=== PATIENT | female | born 1985 | race Caucasian/White ===

== ENCOUNTER → 2017-01-11 | Outpatient (CLI) | payer MEDICAID | LOC: BMCIMAGING 10:34 | PROVIDERS: ATTEND Nurse Practitioner Adult Health | DX: R76.11 Nonspecific reaction to tuberculin skin test without active tuberculosis (principal); Z11.1 Encounter for screening for respiratory tuberculosis ==

== ENCOUNTER 2017-02-23 22:40 | Observation (INO) | payer MEDICAID ==
[2017-02-23] MEDS ORDERED: HYDROmorphONE/DILAUDID 1 MG/ML SYR ONE (23:34)
[2017-02-23 23:35] LABS: % IMMATURE GRANULYOCYTES 0.3 % (0.0-1.1); ABSOLUTE IMMATURE GRANULOCYTES 0.03 10^3/uL (0.00-0.10); ADD DIFF? NO; ADD MORPH? NO; ADD SCAN? NO; ATYPICAL LYMPHOCYTE FLAG 10 (0-99); FRAGMENT RBC FLAG 0 (0-99); HEMATOCRIT 38.3 % (38.0-47.0); HEMOGLOBIN 13.2 g/dL (12.6-16.3); LEFT SHIFT FLG 0 (0-99); LIPEMIA HEMOLYSIS FLAG 90 (0-99); MEAN CELL HEMOGLOBIN 29.8 pg (27.9-34.1); MEAN CELL HEMOGLOBIN CONCENTR. 34.5 g/dL (32.4-36.7); MEAN CELL VOLUME 86.5 fL (81.5-99.8); MEAN PLATELET VOLUME 10.4 fL (8.7-11.7); PLATELET CLUMPS FLAG 0 (0-99); PLATELET COUNT 290 10^3/uL (150-400); RED BLOOD CELL COUNT 4.43 10^6/uL (4.18-5.33); RED CELL DISTRIBUTION WIDTH 12.9 % (11.5-15.2)
[2017-02-23] MEDS ORDERED: HYDROmorphONE/DILAUDID 1 MG/ML SYR IVP ONE (23:38)
[2017-02-23] MEDS ORDERED: NS 1,000 ML IV ONE (23:39)
[2017-02-23 23:41] LABS: ANION GAP 12 mEq/L (8-16); CALCIUM 9.6 mg/dL (8.5-10.4); CARBON DIOXIDE 18 mEq/l (22-31); CHLORIDE 104 mEq/L (97-110); CREATININE 0.6 mg/dL (0.6-1.0); GLOMERULAR FILTRATION RATE > 60; GLUCOSE 96 mg/dL (70-100); SODIUM 134 mEq/L (134-144)
[2017-02-24 00:45] LABS: COLOR YELLOW; LEUKOCYTE ESTERASE,URINE NEGATIVE (NEGATIVE); NITRITE,URINE NEGATIVE (NEGATIVE)
[2017-02-24] MEDS ORDERED: ONDANSETRON 4 MG/2 ML VIAL ONE ×2 (00:48→05:12)
[2017-02-24] MEDS ORDERED: ONDANSETRON 4 MG/2 ML VIAL IVP ONE ×3 (00:50→06:33)
[2017-02-24] MEDS ORDERED: IOPAMIDOL (ISOVUE-300) 100 ML BTL ONE (01:14)
[2017-02-24] MEDS: HYDROmorphONE/DILAUDID 1 MG/ML SYR IVP PRN ×3 (01:30→12:08)
[2017-02-24] MEDS ORDERED: NS 1,000 ML IV ONE (02:40)
[2017-02-24] MEDS ORDERED: HYDROmorphONE/DILAUDID 1 MG/ML SYR IVP ONE (03:51)
[2017-02-24] MEDS ORDERED: KETOROLAC 15 MG/1 ML SDV IVP ONE (05:30)
--- NOTE | 2017-02-24 06:54 | EDPHY ---
H & P Stated Complaint: R low back and suprapubic pain today, nausea, urinary frq Time Seen by Provider: 02/23/17 23:47 HPI/ROS: HPI The patient presents with right-sided flank and lower abdominal pain which has been present for the last several hours. It began as a shooting pain in her flank which was constant and then radiated to her lower abdomen on the right side greater than the left. She has had less frequent bowel movements than usual through her ostomy which she has in place for Crohn's disease. She denies any dark or bloody stools. She has not had any vomiting though has been feeling quite nauseated. She has not had any vaginal bleeding. She denies any dysuria or hematuria. REVIEW OF SYSTEMS Constitutional: No fever, no chills. Eyes: No discharge. ENT: No sore throat. Cardiovascular: No chest pain, no palpitations. Respiratory: No cough, no shortness of breath. Gastrointestinal: Positive for abdominal pain Genitourinary: No hematuria. Musculoskeletal: No back pain. Skin: No rashes. Neurological: No headache. PMHx: History of Crohn's disease, status post ostomy, currently not on any medications, history of partial small-bowel obstruction Soc Hx: Housed PHYSICAL General Appearance: Alert, no distress Eyes: Pupils equal and round no pallor or injection ENT, Mouth: Mucous membranes moist Respiratory: There are no retractions, lungs are clear to auscultation Cardiovascular: Regular rate and rhythm Back: Right CVA tenderness Gastrointestinal: Abdomen is soft, ostomy draining brown stool, tender in her right lower quadrant without rebound or guarding Neurological: A&O, moves all extremities Skin: Warm and dry, no rashes Musculoskeletal: Neck is supple non tender Extremities: symmetrical, full range of motion Psychiatric: Patient is oriented X 3, there is no agitation Source: Patient Exam Limitations: No limitations - Personal History LMP (Females 10-55): 8-14 Days Ago Current Tetanus/Diphtheria Vaccine: Yes Current Tetanus Diphtheria and Acellular Pertussis (TDAP): Yes - Medical/Surgical History Hx Asthma: No Hx Chronic Respiratory Disease: No Hx Diabetes: No Hx Cardiac Disease: No Hx Renal Disease: No Hx Cirrhosis: No Hx Alcoholism: No Hx HIV/AIDS: No Hx Splenectomy or Spleen Trauma: No Other PMH: Crohn's and ileostomy, ADD - Social History Smoking Status: Never smoked Constitutional: Initial Vital Signs Temperature (C) 36.7 C 02/23/17 22:48 Heart Rate 88 02/23/17 22:48 Respiratory Rate 16 02/23/17 22:48 Blood Pressure 112/70 02/23/17 22:48 O2 Sat (%) 96 02/23/17 22:48 O2 Delivery Mode Room Air Allergies/Adverse Reactions: No Known Allergies Allergy (Verified 01/31/16 20:16) Home Medications: Medication Instructions Recorded Adderall 02/23/17 Medical Decision Making - Diagnostics Imaging Results: CT abdomen pelvis with IV contrast- Large complex right adnexal mass measuring 9 x 9 x 6 cm, differential includes hemorrhagic ovarian cyst versus ovarian neoplasm, no free fluid, discussed with Dr. Mckenzie of Radiology. Pelvic ultrasound- Large right adnexal complex cystic mass with septations and blood flow, right ovary is not visualized, presumed to be ovarian mass, discussed with Dr. Mckenzie of Radiology. Differential Diagnosis: This is a 31-year-old female with history of Crohn's disease with colectomy who presents from home with 1 day of right flank and right lower quadrant abdominal pain associated with nausea. Differential diagnosis includes ureterolithiasis, pyelonephritis, appendicitis, bowel obstruction, ovarian cyst. In the emergency room, IV was established and the patient was given IV fluids for volume depletion. She received several doses of Dilaudid for pain. Basic labs were checked and were relatively unremarkable. UA did not reveal hematuria or white blood cells. CT scan was then ordered. This showed a large right-sided adnexal mass. Because we could not rule out torsion, pelvic ultrasound was performed. This demonstrated a large adnexal mass concerning for possible neoplasm. The case was discussed with the OBGYN division operations manager, Dr. Malagon. We plan to admit the patient to the hospital for ongoing pain control and possible further workup for this mass. I have written admission orders. I have discussed the findings of the imaging with the patient and have explained that there is a chance that this could be malignancy. - Data Points Laboratory Results: Laboratory Results 02/23/17 23:10 02/23/17 23:10 02/24/17 02/23/17 02/23/17 00:20 23:10 23:10 WBC RBC Hgb Hct MCV MCH MCHC RDW Plt Count MPV Neut % (Auto) Lymph % (Auto) [place] % (Auto) Eos % (Auto) Baso % (Auto) Nucleat RBC Rel Count Absolute Neuts (auto) Absolute Lymphs (auto) Absolute Monos (auto) Absolute Eos (auto) Absolute Basos (auto) Absolute Nucleated RBC Immature Gran % Immature Gran # Sodium 134 mEq/L mEq/L (134-144) Potassium 4.0 mEq/L mEq/L (3.5-5.2) Chloride 104 mEq/L mEq/L (97-110) Carbon Dioxide 18 mEq/l L mEq/l (22-31) Anion Gap 12 mEq/L mEq/L (8-16) BUN 10 mg/dL mg/dL (7-23) Creatinine 0.6 mg/dL mg/dL (0.6-1.0) Estimated GFR > 60 Glucose 96 mg/dL mg/dL (70-100) Calcium 9.6 mg/dL mg/dL (8.5-10.4) Beta HCG, Qual NEGATIVE Urine Color YELLOW Urine Appearance HAZY Urine pH 5.0 (5.0-7.5) Ur Specific [place] 1.009 (1.002-1.030) Urine Protein NEGATIVE (NEGATIVE) Urine Ketones NEGATIVE (NEGATIVE) Urine Blood NEGATIVE (NEGATIVE) Urine Nitrate NEGATIVE (NEGATIVE) Urine Bilirubin NEGATIVE (NEGATIVE) Urine Urobilinogen NEGATIVE EU EU (0.2-1.0) Ur Leukocyte Esterase NEGATIVE (NEGATIVE) Urine Glucose NEGATIVE (NEGATIVE) 02/23/17 23:10 WBC 9.36 10^3/uL 10^3/uL (3.80-9.50) RBC 4.43 10^6/uL 10^6/uL (4.18-5.33) Hgb 13.2 g/dL g/dL (12.6-16.3) Hct 38.3 % % (38.0-47.0) MCV 86.5 fL fL (81.5-99.8) MCH 29.8 pg pg (27.9-34.1) MCHC 34.5 g/dL g/dL (32.4-36.7) RDW 12.9 % % (11.5-15.2) Plt Count 290 10^3/uL 10^3/uL (150-400) MPV 10.4 fL fL (8.7-11.7) Neut % (Auto) 45.1 % % (39.3-74.2) Lymph % (Auto) 45.8 % H % (15.0-45.0) [place] % (Auto) 6.6 % % (4.5-13.0) Eos % (Auto) 1.5 % % (0.6-7.6) Baso % (Auto) 0.7 % % (0.3-1.7) Nucleat RBC Rel Count 0.0 % % (0.0-0.2) Absolute Neuts (auto) 4.21 10^3/uL 10^3/uL (1.70-6.50) Absolute Lymphs (auto) 4.29 10^3/uL H 10^3/uL (1.00-3.00) Absolute Monos (auto) 0.62 10^3/uL 10^3/uL (0.30-0.80) Absolute Eos (auto) 0.14 10^3/uL 10^3/uL (0.03-0.40) Absolute Basos (auto) 0.07 10^3/uL 10^3/uL (0.02-0.10) Absolute Nucleated RBC 0.00 10^3/uL 10^3/uL (0-0.01) Immature Gran % 0.3 % % (0.0-1.1) Immature Gran # 0.03 10^3/uL 10^3/uL (0.00-0.10) Sodium Potassium Chloride Carbon Dioxide Anion Gap BUN Creatinine Estimated GFR Glucose Calcium Beta HCG, Qual Urine Color Urine Appearance Urine pH Ur Specific [place] Urine Protein Urine Ketones Urine Blood Urine Nitrate Urine Bilirubin Urine Urobilinogen Ur Leukocyte Esterase Urine Glucose Medications Given: Discontinued Medications Hydromorphone HCl (Dilaudid) 1 mg IVP EDNOW ONE Stop: 02/23/17 23:39 Last Admin: 02/23/17 23:38 Dose: 1 mg Hydromorphone HCl (Dilaudid) 1 mg IVP EDNOW ONE Stop: 02/24/17 03:52 Last Admin: 02/24/17 03:55 Dose: 1 mg Sodium Chloride (Ns) 1,000 mls @ 0 mls/hr IV ONCE ONE PRN Reason: Wide Open Stop: 02/23/17 23:40 Last Admin: 02/23/17 23:40 Dose: 1,000 mls Sodium Chloride (Ns) 1,000 mls @ 3,000 mls/hr IV ONCE ONE Stop: 02/24/17 02:59 Last Admin: 02/24/17 02:40 Dose: 1,000 mls Ketorolac Tromethamine (Toradol) 15 mg IVP EDNOW ONE Stop: 02/24/17 05:31 Last Admin: 02/24/17 05:45 Dose: 15 mg Ondansetron HCl (Zofran) 4 mg IVP EDNOW ONE Stop: 02/24/17 00:51 Last Admin: 02/24/17 00:50 Dose: 4 mg Ondansetron HCl (Zofran) 4 mg IVP EDNOW ONE Stop: 02/24/17 05:23 Last Admin: 02/24/17 05:23 Dose: 4 mg Ondansetron HCl (Zofran) 4 mg IVP EDNOW ONE Stop: 02/24/17 06:34 Last Admin: 02/24/17 06:30 Dose: 4 mg Departure - Departure Disposition: [facility] Acute Clinical Impression: Adnexal mass, Right sided abdominal pain, Right flank pain Crohns disease Qualifiers: Gastrointestinal tract location: unspecified location Digestive disease complication type: unspecified complication Qualified Code(s): K50.919 - Crohn' s disease, unspecified, with unspecified complications Condition: Fair
[2017-02-24] MEDS ORDERED: ALPRAZolam 0.25 MG TAB PO PRN (09:26)
[2017-02-24] MEDS ORDERED: ONDANSETRON 4 MG/2 ML VIAL IVP PRN (09:28)
[2017-02-24 12:11] VITALS: BP 102/67; PULSE 77; RESP 16; TEMP 97.8; O2SAT 97
[2017-02-24] MEDS ORDERED: HYDROCODONE/APAP 5/325 TAB PO PRN (13:31)
[2017-02-24] MEDS ORDERED: IBUPROFEN 600 MG TAB PO SCH (13:45)
--- NOTE | 2017-02-24 13:56 | GHP ---
[f rep st] HISTORY AND PHYSICAL DATE OF ADMISSION: 02/24/2017 ADMITTING DIAGNOSIS: Right lower quadrant abdominal pain. HISTORY OF PRESENT ILLNESS: Patient is a 31-year-old nullipara with a last menstrual period 2 weeks ago. She presented the ER late last night with complaints of right-sided flank pain, as well as right lower abdominal pain. The pain became progressively worse, and began shooting in her flank and radiating to her lower abdomen on the right side greater than the left. This worsening pain brought her into the emergency room. She does endorse nausea, but has not had any vomiting. Denies any abnormal vaginal discharge or any vaginal bleeding. Denies any urinary or bowel complaints. She has noticed less frequent bowel movements than usual through her ostomy, which she has been placed for Crohn disease. The patient is getting some relief with Dilaudid in the emergency room, and right now, her pain is at a 4. Label Printer-Dr. Dubois. Patient was on control pills in the past and did not tolerate side effects. OBSTETRICAL HISTORY: Patient is nulliparous. GYNECOLOGIC HISTORY: Age of menarche 14. Cycles are regular, every 28 days. She usually bleeds for 5-7 days. Patient denies a history of abnormal Pap smears or any exposure to sexually-transmitted diseases. PAST MEDICAL HISTORY: Crohn's disease, status post ostomy, currently not on any medications. History of a partial small bowel obstruction and ADD. SURGICAL HISTORY: She is status post ostomy secondary to Crohn's. She has had surgeries for abscesses and fistulas related to Crohn's. MEDICATIONS: Adderall. ALLERGIES: No known drug allergies. SOCIAL HISTORY: She has a fiance. She denies any alcohol, tobacco, or illicit drug use. FAMILY HISTORY: Noncontributory. REVIEW OF SYSTEMS: A 10-point review of systems is negative, except for the positive pertinent as noted in the HPI. LABORATORY: White count is 9.36, H and H 13.2 and 38. Beta hCG is negative. CA-125 is normal at 17. STUDIES: Pelvic ultrasound shows the uterus measuring 6 x 4 x 4 cm, with no pathology. No definitive fibroids seen. Endometrial stripe measures 8 mm. There is, however, a complex, cystic, solid mass in the right adnexa measuring 9 x 7 x 6 cm. It is solid with septations. Left ovary is normal. There is a flow to both ovaries. No free fluid. PHYSICAL EXAMINATION: VITAL SIGNS: Stable. Temp is 36.6, blood pressure 102/ 61, heart rate 78, and saturating at 97% room air. GENERAL: Patient is alert and oriented x3. No apparent distress. Well-nourished, well-developed female. RESPIRATORY: Lungs are clear to auscultation bilaterally. Normal breath sounds. CARDIOVASCULAR: Regular rate and rhythm without murmur or gallop. BACK: Some right CVA tenderness. ABDOMEN: Soft, nondistended, mildly tender in the right lower quadrant. Ostomy is draining brown stool. There is no rebound or guarding. EXTREMITIES: Normal to inspection without edema or calf tenderness. SKIN: Warm and dry without rashes. ASSESSMENT: Patient is a 31-year-old, nullipara, with last menstrual period 2 weeks ago, who presents with right-sided lower quadrant pain with a complex solid mass of the right adnexa. PLAN: 1. Admit to Mother/Baby for pain management. Will continue Dilaudid IV for now since pain is well controlled. 2. Reviewed ultrasound findings with patient, as well as normal CA-125 and do not feel this complex mass is cancerous. Suspect that this mass may represent an ovulatory cyst, since she is midcycle. Other diagnoses could include a dermoid cyst, endometrioma, or cystadenoma, all benign. There is flow to right ovary, so no torsion at this time. 3. If pain continues to be well controlled, will try to advance diet and if patient is tolerating po than will change to oral medications, Motrin and [place]. 4. Patient does not have a surgical abdomen at this time and do not feel she is a great surgical candidate with previous history. Recommend holding off on surgery for now, and having patient follow up on an outpatient basis for a follow-up ultrasound in 4-6 weeks and to consider treatment with control pills for prevention of these functional cysts. 5. Will continue to monitor her pain and if stable, possible discharge home later today. /[id number]/MODL MTDD
== END 2017-02-24 18:13 | disposition home or self-care (01) ==
LOC: FOB 02-24 06:50
PROVIDERS: ADMIT Obstetrics & Gynecology; ATTEND Obstetrics & Gynecology
DX: R10.31 Right lower quadrant pain (principal); R93.8 Abnormal findings on diagnostic imaging of other specified body structures
CPT/HCPCS: 74177; 76857; G0378; 86304-90; 96374; J1170; J1885; J2405; Q9967

== ENCOUNTER 2017-03-04 05:07 | Observation (INO) | payer MEDICAID ==
[2017-03-04] MEDS ORDERED: ONDANSETRON 4 MG/2 ML VIAL IVP ONE (05:24)
[2017-03-04] MEDS ORDERED: HYDROmorphONE/DILAUDID 1 MG/ML SYR IVP ONE (05:24)
--- NOTE | 2017-03-04 05:43 | EDPHY ---
H & P Stated Complaint: abd pain; sched for surg on Time Seen by Provider: 03/04/17 05:18 HPI/ROS: HPI The patient presents with right-sided lower abdominal pain which has been present for the last 1 week, though is getting progressively worse. She is taking pain medication, hydrocodone and oxycodone, however this is not helping the pain. It is described as severe, aching, constant. It is associated with nausea. She was diagnosed with a mass of the right adnexal about 8 days ago and this is the presumed cause of her pain. She has not had any fevers, vaginal discharge. She has a scheduled operation next week, though feels she cannot wait till this time because her pain is too severe.. REVIEW OF SYSTEMS Constitutional: No fever, no chills. Eyes: No discharge. ENT: No sore throat. Cardiovascular: No chest pain, no palpitations. Respiratory: No cough, no shortness of breath. Gastrointestinal: No abdominal pain, no vomiting. Genitourinary: No hematuria. Musculoskeletal: No back pain. Skin: No rashes. Neurological: No headache. PMHx: Complex solid mass of the right adnexa, Crohn's disease with ostomy in place Soc Hx: Lives with her fiance PHYSICAL General Appearance: Alert, uncomfortable appearing, slumped over the gurney Eyes: Pupils equal and round no pallor or injection ENT, Mouth: Mucous membranes moist Respiratory: There are no retractions, lungs are clear to auscultation Cardiovascular: Regular rate and rhythm Gastrointestinal: Abdomen is soft with tenderness in her right lower quadrant, bowel sounds normal Neurological: A&O, moves all extremities Skin: Warm and dry, no rashes Musculoskeletal: Neck is supple non tender Extremities: symmetrical, full range of motion Psychiatric: Patient is oriented X 3, there is no agitation Source: Patient Exam Limitations: No limitations - Personal History LMP (Females 10-55): Now Current Tetanus/Diphtheria Vaccine: Yes - Medical/Surgical History Hx Asthma: No Hx Chronic Respiratory Disease: No Hx Diabetes: No Hx Cardiac Disease: No Hx Renal Disease: No Hx Cirrhosis: No Hx Alcoholism: No Hx HIV/AIDS: No Hx Splenectomy or Spleen Trauma: No Other PMH: PMHx: Crohn's, ADD. PSHx: ileostomy - Social History Smoking Status: Never smoked Constitutional: Initial Vital Signs Temperature (C) 36.6 C 03/04/17 05:10 Heart Rate 80 03/04/17 05:10 Respiratory Rate 16 03/04/17 05:10 Blood Pressure 116/83 H 03/04/17 05:10 O2 Sat (%) 97 03/04/17 05:10 O2 Delivery Mode Room Air Allergies/Adverse Reactions: No Known Allergies Allergy (Verified 01/31/16 20:16) Home Medications: Medication Instructions Recorded Amphet Asp and D/Amphet [Adderall 5 - 10 mg PO DAILY@1400 PRN 02/24/17 10 MG (*)] Amphet Asp and D/Amphet [Adderall 15 mg PO DAILY PRN 02/24/17 10 MG (*)] Hydrocodone/APAP 5/325 [[place] 1 - 2 tab PO Q4HRS PRN #30 tab 02/24/17 5/325 (*)] Ibuprofen [Motrin (*)] 200 mg PO DAILY PRN 02/24/17 oxyCODONE CR 03/04/17 Medical Decision Making - Diagnostics Imaging Results: Pelvic ultrasound demonstrates right-sided ovarian cyst, maximal diameter is 10 cm, there is some signs of internal hemorrhage, there is no sign of torsion, discussed with Dr. Martins of Radiology. Imaging: Discussed imaging studies w/ call circuit worker Radiologist Differential Diagnosis: This is a 31-year-old female with known complex solid right adnexal mass, diagnosed last week, being managed as an outpatient with pain medication, however with worsening pain not well controlled at home. She has a history of Crohn's disease and an ostomy. Differential diagnosis includes pain from ovarian mass, ovarian torsion, less likely appendicitis. In the emergency room, the patient was given IV fluids and Dilaudid for pain. Pelvic ultrasound was performed. Basic labs were checked and were all unremarkable. I consulted with Dr. Marlen Malagon and we discussed the case. She knows the patient. We will admit her for pain control for now. - Data Points Laboratory Results: Laboratory Results 03/04/17 05:02 03/04/17 05:02 03/04/17 03/04/17 03/04/17 06:02 05:02 05:02 WBC 8.01 10^3/uL 10^3/uL (3.80-9.50) RBC 4.49 10^6/uL 10^6/uL (4.18-5.33) Hgb 13.2 g/dL g/dL (12.6-16.3) Hct 38.7 % % (38.0-47.0) MCV 86.2 fL fL (81.5-99.8) MCH 29.4 pg pg (27.9-34.1) MCHC 34.1 g/dL g/dL (32.4-36.7) RDW 12.7 % % (11.5-15.2) Plt Count 294 10^3/uL 10^3/uL (150-400) MPV 10.5 fL fL (8.7-11.7) Neut % (Auto) 42.7 % % (39.3-74.2) Lymph % (Auto) 47.9 % H % (15.0-45.0) [place] % (Auto) 6.7 % % (4.5-13.0) Eos % (Auto) 1.9 % % (0.6-7.6) Baso % (Auto) 0.6 % % (0.3-1.7) Nucleat RBC Rel Count 0.0 % % (0.0-0.2) Absolute Neuts (auto) 3.41 10^3/uL 10^3/uL (1.70-6.50) Absolute Lymphs (auto) 3.84 10^3/uL H 10^3/uL (1.00-3.00) Absolute Monos (auto) 0.54 10^3/uL 10^3/uL (0.30-0.80) Absolute Eos (auto) 0.15 10^3/uL 10^3/uL (0.03-0.40) Absolute Basos (auto) 0.05 10^3/uL 10^3/uL (0.02-0.10) Absolute Nucleated RBC 0.00 10^3/uL 10^3/uL (0-0.01) Immature Gran % 0.2 % % (0.0-1.1) Immature Gran # 0.02 10^3/uL 10^3/uL (0.00-0.10) Sodium 141 mEq/L mEq/L (134-144) Potassium 4.9 mEq/L mEq/L (3.5-5.2) Chloride 111 mEq/L H mEq/L (97-110) Carbon Dioxide 19 mEq/l L mEq/l (22-31) Anion Gap 11 mEq/L mEq/L (8-16) BUN 13 mg/dL mg/dL (7-23) Creatinine 0.7 mg/dL mg/dL (0.6-1.0) Estimated GFR > 60 Glucose 79 mg/dL mg/dL (70-100) Calcium 9.8 mg/dL mg/dL (8.5-10.4) Urine Color YELLOW Urine Appearance CLEAR Urine pH 5.0 (5.0-7.5) Ur Specific [place] 1.016 (1.002-1.030) Urine Protein NEGATIVE (NEGATIVE) Urine Ketones NEGATIVE (NEGATIVE) Urine Blood 3+ H (NEGATIVE) Urine Nitrate NEGATIVE (NEGATIVE) Urine Bilirubin NEGATIVE (NEGATIVE) Urine Urobilinogen NEGATIVE EU EU (0.2-1.0) Ur Leukocyte Esterase NEGATIVE (NEGATIVE) Urine RBC 15-25 /hpf H /hpf (0-3) Urine WBC 1-3 /hpf /hpf (0-3) Ur Epithelial Cells TRACE /lpf /lpf (NONE-1+) Urine Bacteria TRACE /hpf H /hpf (NONE SEEN) Hyaline Casts 1-5 /lpf /lpf (0-1) Urine Mucus TRACE /lpf /lpf (NONE-1+) Urine Glucose NEGATIVE (NEGATIVE) Medications Given: Discontinued Medications Hydromorphone HCl (Dilaudid) 1 mg IVP EDNOW ONE Stop: 03/04/17 05:25 Last Admin: 03/04/17 05:51 Dose: 1 mg Sodium Chloride (Ns) 1,000 mls @ 0 mls/hr IV ONCE ONE PRN Reason: Wide Open Stop: 03/04/17 05:52 Last Admin: 03/04/17 05:52 Dose: 1,000 mls Ondansetron HCl (Zofran) 4 mg IVP EDNOW ONE Stop: 03/04/17 05:25 Last Admin: 03/04/17 05:51 Dose: 4 mg Departure - Departure Disposition: [facility] Acute Clinical Impression: RLQ abdominal pain, Ovarian cyst Condition: Fair Referrals: JOHNATHAN MARINELLI [Other] - As per Instructions
[2017-03-04] MEDS ORDERED: NS 1,000 ML IV ONE (05:51)
[2017-03-04 05:54] LABS: % IMMATURE GRANULYOCYTES 0.2 % (0.0-1.1); ABSOLUTE IMMATURE GRANULOCYTES 0.02 10^3/uL (0.00-0.10); ADD DIFF? NO; ADD MORPH? NO; ATYPICAL LYMPHOCYTE FLAG 10 (0-99); FRAGMENT RBC FLAG 0 (0-99); HEMATOCRIT 38.7 % (38.0-47.0); HEMOGLOBIN 13.2 g/dL (12.6-16.3); LEFT SHIFT FLG 0 (0-99); LIPEMIA HEMOLYSIS FLAG 90 (0-99); MEAN CELL HEMOGLOBIN 29.4 pg (27.9-34.1); MEAN CELL HEMOGLOBIN CONCENTR. 34.1 g/dL (32.4-36.7); MEAN CELL VOLUME 86.2 fL (81.5-99.8); MEAN PLATELET VOLUME 10.5 fL (8.7-11.7); PLATELET COUNT 294 10^3/uL (150-400); RED BLOOD CELL COUNT 4.49 10^6/uL (4.18-5.33); RED CELL DISTRIBUTION WIDTH 12.7 % (11.5-15.2)
[2017-03-04 05:56] LABS: ADD SCAN? NO; PLATELET CLUMPS FLAG 0 (0-99)
[2017-03-04 06:05] LABS: ANION GAP 11 mEq/L (8-16); CALCIUM 9.8 mg/dL (8.5-10.4); CARBON DIOXIDE 19 mEq/l (22-31); CHLORIDE 111 mEq/L (97-110); CREATININE 0.7 mg/dL (0.6-1.0); GLOMERULAR FILTRATION RATE > 60; GLUCOSE 79 mg/dL (70-100); POTASSIUM 4.9 mEq/L (3.5-5.2); SODIUM 141 mEq/L (134-144)
[2017-03-04 06:12] LABS: COLOR YELLOW; LEUKOCYTE ESTERASE,URINE NEGATIVE (NEGATIVE); NITRITE,URINE NEGATIVE (NEGATIVE)
[2017-03-04 06:26] LABS: BACTERIA TRACE /hpf (NONE SEEN); MUCUS TRACE /lpf (NONE-1+); RBC,URINE 15-25 /hpf (0-3)
[2017-03-04] MEDS ORDERED: ONDANSETRON 4 MG/2 ML VIAL IVP PRN (07:45)
--- NOTE | 2017-03-04 09:00 | GHP ---
[f rep st] HISTORY AND PHYSICAL DATE OF ADMISSION: 03/04/2017 ADMITTING DIAGNOSIS: Right lower quadrant pain. HISTORY OF PRESENT ILLNESS: Patient is a 31-year-old, nulliparous, with the last menstrual period 3 weeks ago. She presented to the ER (second time) early this morning with complaints of right lower quadrant pain for 1-1/2 weeks duration now. Pain is progressively worsening. It is described as severe, achy , and constant. No radiation. There are no alleviating or exacerbating factors. It is associated with nausea. No vomiting. Denies any fevers, chills , abnormal vaginal discharge. No urinary or bowel complaints. She is taking oxycodone or hydrocodone with no relief. Patient is scheduled for surgery next Tuesday and feels as if she cannot wait that long secondary to the pain, and no relief with pain medicine. OBSTETRICAL HISTORY: Patient is nulliparous. [employer] HISTORY: Age of menarche is 14. Cycles are regular every 28 days. She usually bleeds 5-7 days. Patient denies a history of abnormal Pap smears or exposure to sexually transmitted diseases. She is currently not on any control. PAST MEDICAL HISTORY: Crohn's disease, ADD. SURGICAL HISTORY: Total colectomy 2010 with ileostomy secondary to Crohn's disease. MEDICATIONS: Adderall, oxycodone, hydrocodone, Motrin. ALLERGIES: No known drug allergies. SOCIAL HISTORY: She has a fiancee. Denies alcohol, tobacco or illicit drug use. FAMILY HISTORY: Noncontributory. REVIEW OF SYSTEMS: 10-point review of systems negative except for the positive pertinent noted in the HPI. LABORATORY: White count is 8.1, H and H is 13.2, 38.7. Pelvic ultrasound, again uterus is 6 x 4 x 4 cm with no pathology. Again, there is a complex cystic solid mass in the right adnexa, slightly enlarged at 10 cm, and there is new internal echogenic fluid seen. Left ovary is normal. There is flow to both ovaries. No torsion. No free fluid noted. PHYSICAL EXAM: VITAL SIGNS: Stable. Patient is afebrile. GENERAL: Alert, oriented x3. Mild distress secondary to discomfort. Well-nourished, well- developed female. RESPIRATORY: Lungs are clear to auscultation bilaterally. Normal breath sounds. CARDIOVASCULAR: Regular rate and rhythm without murmur or gallop. ABDOMEN: Soft, not distended. Mildly tender in the right lower quadrant without rebound or guarding. Ostomy is draining brown stool. EXTREMITIES: Normal to inspection without edema or calf tenderness. ASSESSMENT: Patient is a 31-year-old nulliparous with a last menstrual period 3 weeks ago with worsening right-sided abdominal pain with a complex solid mass of right adnexa. PLAN: 1. Admit to Mother/Baby for pain management. 2. Will continue Dilaudid IV for now and then switch to po meds once tolerating. 3. Since this is not an emergency, there is no torsion on u/s and no surgical abdomen, surgery will not be done today. 4. Surgery is scheduled for 03/09/17; if patient does not feel as if pain is well controlled then we can transfer her to a different hospital to see if surgery can be done today, since patient is requesting that. 5. Discussed with GS - Dr. Angelo who agrees with the plan as he is tied up in the OR all day on trauma call. Also discussed with Dr. Shaw who is health promotion coordinator for [employer] and she will see the patient after her OR case in the afternoon to discuss transfer. /[id number]/MODL MTDD
[2017-03-04 09:20] VITALS: RESP 16
[2017-03-04] MEDS: HYDROmorphONE/DILAUDID 1 MG/ML SYR IVP PRN ×2 (09:24→13:05)
[2017-03-04] MEDS ORDERED: HYDROmorphONE/DILAUDID 2 MG TAB PO PRN (11:19)
[2017-03-04] MEDS ORDERED: PROMETHAZINE HCL 25 MG/ML INJ IVP PRN (11:19)
[2017-03-04 12:38] VITALS: BP 100/71; PULSE 86; TEMP 97.7; O2SAT 97
--- NOTE | 2017-03-04 15:37 | GDS ---
[f rep st] DISCHARGE SUMMARY Discharge is on the Gynecology service. HOSPITAL CARE: The patient was seen in the emergency room in the morning on March 04 and was reporti ng to the emergency room that she refused to leave the hospital until she had surgery and therefore was placed on the floor for further discussion with the general surgeon and INSEAM LEVELER. The general antonyo n, who has planned proceeding with surgery next Tuesday, is not able to do the surgery today with his schedule and the patient's level of a complicated surgical risk with abdominal GI surgery is not appropriate for our gynecology staff to take her primarily to the operating room, and so, therefore , it does not look like surgery will be feasible today for the patient. She, in the past, has been able to manage pain orally. She has been refusing that today as she has demanded surgery. The patient is reporting that she needs to be transferred to another hospital to take care of her needs as she feels that she is inappropriately being managed on narcotics as she ne eds to proceed to surgery. The patient requests being transferred to [place]. I consulted with the INSEAM LEVELER oncologist at the [facility] and they do not feel that the patient's clinical situation appears acute enough that she needs to be taken emergently to surgery today and that very likely jez would not be able to proceed with surgery prior to what she is already scheduled for here. They advised that if she feels like she needs surgery prior to next Tuesday that she needs to present t o the [place] [facility] for evaluation. They recommend continuing on oral medication to control the pain. Most pertinently the patient will have a GI prep prior to surgery to help facilitate lessening complication risk with abdominal surge ry. The patient was advised of this recommendation and that we will not be making a hospital transf er today and the patient will not be having surgery today. She is given this information and desire s discharge. There is no change in her clinical picture. Her vital signs have been stable and the patient has been sitting comfortably in her bed today. She did request 1 IV dose of medicines that she was given approximately an hour ago as the patient was refusing oral medicine and has not taken anything all day. The pain is improved with that dose of IV medicine. /[id number]/MODL
== END 2017-03-04 13:00 | disposition home or self-care (01) ==
LOC: FOB 08:40
PROVIDERS: ADMIT Obstetrics & Gynecology; ATTEND Obstetrics & Gynecology
DX: R19.03 Right lower quadrant abdominal swelling, mass and lump (principal); K50.90 Crohn's disease, unspecified, without complications; Z93.2 Ileostomy status
CPT/HCPCS: 76856; G0378; 96374; J1170; J2405; J2550

== ENCOUNTER 2017-03-09 06:24 | Observation (INO) | payer MEDICAID ==
--- NOTE | 2017-03-07 15:42 | GHP ---
[f rep st] HISTORY AND PHYSICAL DATE OF ADMISSION: 03/09/2017 ADMITTING DIAGNOSES: 1. Right lower abdominal pelvic pain. 2. Right complex adnexal mass. HISTORY OF PRESENT ILLNESS: The patient is a 31-year-old nulliparous with a last menstrual period of 03/04/2019, who has had multiple ER admissions secondary to right lower abdominal pelvic pain for almost 2 weeks duration now. The pain is described as severe, achy, and constant. There is no radiation. There are no alleviating or exacerbating factors. Pain is associated with nausea, but no vomiting. Denies any fevers, chills, abnormal vaginal discharge. No urinary or bowel complaints at this time. She is taking hydrocodone with minimal relief. The patient is scheduled for surgery on the March 09 with General Surgery, Dr. Angelo who will start the case and myself secondary to the pain, as well as removal of this mass. OBSTETRICAL HISTORY: The patient is nulliparous. SECOND STEWARD HISTORY: Age of menarche 14. Cycles are regular every 28 days. She usually bleeds 5-7 days. The patient denies a history of abnormal Pap smears or exposure to sexually transmitted diseases. She is currently not on any control. PAST MEDICAL HISTORY: Crohn's disease, ADD. SURGICAL HISTORY: Total colectomy 2010 with ileostomy secondary to Crohn's disease. MEDICATIONS: Adderall, hydrocodone and Motrin. ALLERGIES: No known drug allergies. SOCIAL HISTORY: She has a fiance. She denies alcohol, tobacco or illicit drug use. FAMILY HISTORY: Noncontributory. REVIEW OF SYSTEMS: A 10-point review of systems is negative, except for the pertinent positives noted in the HPI. LABORATORY: White count 8.1, H and H 13.2 and 38.7. IMAGING: On pelvic ultrasound, uterus is normal measuring 6 x 4 x 4 cm. A complex cystic solid mass is noted in the right adnexa, enlarged at 10 x 9 cm. There is new internal echogenic fluid seen from the previous ultrasound a week ago. The left ovary is normal. Flow is seen to both ovaries. No torsion. No free fluid. PHYSICAL EXAMINATION: VITAL SIGNS: The patient is afebrile. Vital signs are stable. GENERAL: Alert and oriented x3, in no apparent distress. A well- nourished, well-developed female. RESPIRATORY: Lungs are clear to auscultation bilaterally. Normal breath sounds. CARDIOVASCULAR: Regular rate and rhythm, without murmur. ABDOMEN: Soft, nondistended. Mildly tender in the right lower quadrant without rebound or guarding. Ostomy is draining brown stool. EXTREMITIES: Normal to inspection, without edema or calf tenderness. PELVIC: Deferred. ASSESSMENT: The patient is a 31-year-old nulliparous with a last menstrual period 03/04/2017, presenting with right lower abdominal pelvic pain and a complex solid mass of the right adnexa. PLAN: 1. We discussed surgery, laparoscopic removal of right complex mass and/or ovary, its limitations, n.p.o. status and postoperative recovery. 2. Discussed that the patient may not have relief of her pain after surgery. She understands and wants to proceed. 4. Surgical consents were obtained. Discussed risks, benefits and alternatives with the patient, including but not limited to, bleeding, infection , damage to surrounding organs. The patient understands all risks, signed consents, and wants to proceed with surgery at this time. 4. Antibiotics marine extension agent to OR. 5. SCDs for DVT prophylaxis. /[id number]/MODL ELVIRA
[~2017-03-09 06:24] MED LIST: ceFAZolin 2 GM/DEXTROSE 100 ML IV ONE
[2017-03-09] MEDS ORDERED: LIDOCAINE 1% 2 ML INJ ONE (06:54)
[2017-03-09] MEDS ORDERED: LR 1,000 ML IV ONE (07:05)
[2017-03-09] MEDS ORDERED: LIDOCAINE 1% 2 ML INJ ID PRN (07:05)
--- NOTE | 2017-03-09 07:20 | PDANEPAE ---
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 She has been NPO since 21:30 03/08/17. She has NKDA but prefers to not have flagyll. She has had multiple anesthetics without complication ANE Past Medical History - Cardiovascular History Hx Hypertension: No Hx Arrhythmias: No Hx Chest Pain: No Hx Coronary Artery / Peripheral Vascular Disease: No Hx CHF / Valvular Disease: No Hx Palpitations: No - Pulmonary History Hx COPD: No Hx Asthma/Reactive Airway Disease: No Hx Recent Upper Respiratory Infection: No Hx Oxygen in Use at Home: No - Neurologic History Hx Cerebrovascular Accident: No Hx Seizures: No Hx Dementia: No - Endocrine History Hx Diabetes: No - Renal History Hx Renal Disorders: No - Liver History Hx Hepatic Disorders: No - Neurological & Psychiatric Hx Hx Neurological and Psychiatric Disorders: No - Cancer History Hx Cancer: No - Congenital Disorder History Hx Congenital Disorders: No - GI History Hx Gastrointestinal Disorders: Yes - Chronic Pain History Chronic Pain: No ANE Review of Systems - Exercise capacity METS (RN): 6 METS ANE Patient History - Allergies Allergies/Adverse Reactions: No Known Allergies Allergy (Verified 01/31/16 20:16) - Home Medications Home Medications: Ibuprofen [Motrin (*)] 600 - 800 mg PO DAILY PRN 02/24/17 [Last Taken 2 Weeks Ago] Amphet Asp and D/Amphet [Adderall 10 MG (*)] 10 mg PO DAILY PRN 03/04/17 [Last Taken 03/07/17] Hydrocodone/Acetaminophen [[place]odge 5/325 (*)] 1 - 2 tab PO Q4H PRN 03/04/17 [Last Taken 03/08/17 19:00] - NPO status NPO Since - Liquids (Date): 03/08/17 NPO Since - Liquids (Time): 21:30 NPO Since - Solids (Date): 03/08/17 NPO Since - Solids (Time): 18:00 - Smoking Hx Smoking Status: Never smoked ANE Labs/Vital Signs - Vital Signs Blood Pressure: 104/65 Heart Rate: 72 Respiratory Rate: 15 O2 Sat (%): 95 Height: 152.4 cm Weight: 52.163 kg ANE Physical Exam - Airway Neck exam: FROM Mallampati Score: Class 1 Mouth exam: normal dental/mouth exam - Pulmonary Pulmonary: no respiratory distress - Cardiovascular Cardiovascular: regular rate and rhythym - ASA Status ASA Status: II (waived test consent on chart) ANE Anesthesia Plan Anesthesia Plan: general endotracheal anesthesia (ASA 2) Urgent/Emergent Case: Anes eval completed preop but documented later for safe timely pt care
[2017-03-09] MEDS ORDERED: ROCURONIUM 50 MG/5 ML VIAL ONE ×2 (07:25→09:26)
[2017-03-09] MEDS ORDERED: HYDROmorphONE/DILAUDID 2 MG/ML INJ ONE (07:25)
[2017-03-09] MEDS ORDERED: PROPOFOL 200 MG/20 ML VIAL ONE (07:25)
[2017-03-09] MEDS ORDERED: LIDOCAINE 1% 300 MG/30 ML SDV ONE (07:30)
[2017-03-09] MEDS ORDERED: SILVER NITRATE APPLICATOR 1 APPL TP ONE ×2 (07:30→11:30)
[2017-03-09] MEDS ORDERED: BUPIVACAINE 0.5% 30 ML SDV ONE (07:30)
[2017-03-09] MEDS ORDERED: MIDAZOLAM 2 MG/2 ML VIAL ONE (07:30)
[2017-03-09] MEDS ORDERED: fentaNYL 100 MCG/2 ML INJ ONE ×5 (07:44→14:11)
[2017-03-09] MEDS ORDERED: LR 500 ML IV PRN (09:37)
[2017-03-09] MEDS ORDERED: NALOXONE HCL 0.4 MG/ML INJ IVP PRN (09:37)
[2017-03-09] MEDS ORDERED: DEXAMETHASONE 4 MG/ML VIAL IVP PRN (09:37)
[2017-03-09] MEDS ORDERED: ONDANSETRON 4 MG/2 ML VIAL IVP PRN ×2 (09:37→19:53)
[2017-03-09] MEDS ORDERED: MEPERIDINE 25 MG/ML SYR IVP PRN (09:37)
[2017-03-09] MEDS ORDERED: METHYLENE BLUE 0.5% 50 MG/10 ML AMP ONE (09:52)
[2017-03-09] MEDS ORDERED: SCOPOLAMINE HYDROBROMIDE 1.5 MG PATCH TD SCH (10:00)
--- NOTE | 2017-03-09 11:46 | POSTOPPROG ---
Post Op Note Date of Operation: 03/09/17 Surgeon: Marlen Malagon Cafeteria Cook: Dr. Angelo (co-surgeon) and Dr. Karen Archibald Anesthesiologist: Dr. Vanessa Marqeus Anesthesia: GET(General Endotracheal) Pre-op Diagnosis: RLQ pain; R complex adnexal mass Post-op Diagnosis: RLQ pain; R complex adnexal mass; R Endometrioma Indication: 31 y/o nullip with 2 week duration of RLQ pain w/ complex R adnexal mass Procedure: Dx Laparoscopy with extensive ESTEFANIA; RSO Findings: Ut RV, sounded 6 cm; adhesions of bowel to abd wall, b/l adnexa, uterus Inf/Abcess present in the surg proc area at time of surgery?: No Depth: Superfical (Skin SQ) EBL: 50-100 (100cc) Total fluids administered: 1850 cc LR UO: 150 cc clear, cloudy urine Complications: None Specimen(s): Right tube and ovary
[2017-03-09] MEDS: fentaNYL 100 MCG/2 ML INJ IVP PRN ×6 (12:10→14:57)
[2017-03-09] MEDS ORDERED: KETOROLAC 30 MG/1 ML SDV ONE (12:21)
--- NOTE | 2017-03-09 12:22 | POSTOPPROG ---
Post Op Note Date of Operation: 03/09/17 Surgeon: Chris Angelo Product Mgmt Dev Manager: GRACE Woo Anesthesiologist: Oralia Anesthesia: GET(General Endotracheal) Pre-op Diagnosis: Ovarian cyst, IBD Post-op Diagnosis: same with micha-anal abscess Procedure: Laparoscopic lysis of adhesions Findings: extensive adhesions from prior surgery Inf/Abcess present in the surg proc area at time of surgery?: No EBL: Minimal Complications: none Drains: Nephrostomy Specimen(s): Ovarian cyst (see Dr Woo's note)
--- NOTE | 2017-03-09 12:57 | POSTANESTH ---
Post Anesthetic Evaluation Cardiovascular Status: Normal, Stable Respiratory Status: Normal, Stable Level of Consciousness/Mental Status: Can Participate in Eval Pain Control: Adequate, Prn Tx Ordered Nausea/Vomiting Control: Adequate, Prn Tx Ordered Complications Possibly Related to Anesthesia: None Noted
[2017-03-09] MEDS ORDERED: HYDROmorphONE/DILAUDID 1 MG/ML SYR ONE (13:11)
[2017-03-09] MEDS: HYDROmorphONE/DILAUDID 1 MG/ML SYR IVP PRN ×2 (13:11→13:38)
[2017-03-09] MEDS ORDERED: KETOROLAC 30 MG/1 ML SDV IVP ONE (13:15)
--- NOTE | 2017-03-09 15:54 | GOP ---
[f rep st] OPERATIVE REPORT DATE OF OPERATION: SURGEON: Chris Angelo MD ANESTHESIA: General endotracheal anesthesia was used. PREOPERATIVE DIAGNOSIS: Ovarian cyst. POSTOPERATIVE DIAGNOSIS: Ovarian cyst, likely endometrioma, inflammatory bowel disease and perirect al abscess/perianal abscess. PROCEDURE PERFORMED: Laparoscopic lysis of extensive adhesions and ovarian cystectomy. See Dr. Rev chambers's note for details of the cystectomy and exploration of perianal abscess. FINDINGS: Hair within sinus tract in the perianal region suggestive of a pilonidal type of disease as opposed to true perianal abscess. SPECIMENS: Ovarian cyst. ESTIMATED BLOOD LOSS: Minimal. INDICATIONS: This is a 31-year-old woman who presents to the hospital for elective right ovarian cy stectomy DESCRIPTION OF PROCEDURE: The patient is brought to the operating room. After induction of endotra cheal anesthesia, in the supine position, she is placed in lithotomy. After [employer] places uterine soun d and Corcoran catheter, a time-out procedure is then performed according to institutional standards. Her abdomen is prepped with chlorhexidine. Her ostomy site in the right lower quadrant is isolated, kept out of the field of dissection. Subxiphoid 10 mm trocar placement is performed to stay away f rom adhesions from her previous lower midline incision and total colectomy. The abdomen is insuffla lakia to 15 torr with carbon dioxide. Working trocars are placed into the right lower quadrant and th en in the infraumbilical region after dissection of some adhesions found there. Extensive adhesioly sis is then performed in the lower abdomen and pelvis and exposure of the cyst, uterus, round ligame nts and ureter is then performed in association with [employer] services. At this point, after exposure of the proposed anatomy, without any enterotomies, no bleeding, the area is then made ready for [employer] se rvices. After completion of their procedure and closure of the abdomen, her perineum is examined an d a posterior anal abscess is noted to have opened up with granulation tissue. There is a second ar ea which is fistulized to that first area which contains copious amounts of hair. The hair is blunt ly removed. The abscess cavity is curetted out and silver nitrate is used to cauterize the granulat ion tissue. The patient has a dressing applied. She is placed supine, awakened, extubated and take n to the recovery room in stable condition. Needle, instrument and sponge counts verified to be cor rect x2. CO-SURGEON: Dr. Malagon. COMPLICATIONS: There were no complications. /[id number]/MODL
[2017-03-09] MEDS ORDERED: ZOLPIDEM TARTRATE 5 MG TAB PO PRN (17:34)
[2017-03-09] MEDS ORDERED: IBUPROFEN 600 MG TAB PO PRN (17:34)
[2017-03-09] MEDS ORDERED: ONDANSETRON DISINTEGRATING 4 MG TAB PO PRN (17:34)
[2017-03-09] MEDS ORDERED: HYDROmorphONE/DILAUDID 2 MG TAB PO PRN (17:42)
--- NOTE | 2017-03-09 17:42 | SOAPPROG ---
SOAP Progress Note Assessment/Plan: Assessment: s/p Dx Laparoscopy with extensive ESTEFANIA and RSO - POD # 0 Plan: Admit for observation for pain control Continue po meds, will add Dilaudid 1 mg PO q 3 hrs prn Regular diet Encourage ambulation Plan for d/c home in am 03/1003/09/17 17:39 Subjective: Pt seen in PACU and is still having quite a bit of pain. Minimal relief with [place] and Motrin. Some nausea, no vomiting. Tolerating crackers and pretzels. Voided without difficulty. Objective: Vital Signs Temp Pulse Resp BP Pulse Ox 36.7 C 93 16 105/72 94 03/09/17 13:58 03/09/17 13:58 03/09/17 13:58 03/09/17 13:58 03/09/17 14:00 Physical Exam - Physical Exam General Appearance: WD/WN, alert, no apparent distress Respiratory: lungs clear, normal breath sounds Cardiac/Chest: regular rate, rhythm Abdomen: normal bowel sounds, soft, distended, other (Mild tenderness diffusely) Pelvic Exam: deferred Extremities: non-tender, normal inspection Neuro/Psych: alert, normal mood/affect, oriented x 3 ICD10 Worksheet Patient Problems: Problems Problem Status Onset Adnexal mass Acute Right sided abdominal pain Acute Crohns disease Acute Ovarian cyst Acute Perineal abscess Acute RLQ abdominal pain Acute Right flank pain Acute
[2017-03-09] MEDS ORDERED: ONDANSETRON 4 MG/2 ML VIAL ONE (18:01)
[2017-03-09] MEDS: HYDROCODONE/APAP 5/325 TAB PO PRN ×3 (19:42→23:42)
[2017-03-10 04:34] VITALS: TEMP 98.1; O2SAT 95
[2017-03-10] MEDS: HYDROCODONE/APAP 5/325 TAB PO PRN ×2 (05:56→10:14)
--- NOTE | 2017-03-10 07:46 | GOP ---
[f rep st] OPERATIVE REPORT DATE OF OPERATION: 03/09/2017 SURGEON: Marlen Malagon DO RESEARCH CHEMICAL ENGINEER: CO-SURGEON: Chris Angelo MD RESEARCH CHEMICAL ENGINEER: Karen Archibald MD. ANESTHESIA: General endotracheal. PREOPERATIVE DIAGNOSIS: 1. Right lower quadrant abdominal pelvic pain. 2. Right complex adnexal mass. POSTOPERATIVE DIAGNOSIS: 1. Right lower quadrant abdominal pelvic pain. 2. Right complex adnexal mass. 3. Right endometrioma. PROCEDURE PERFORMED: Diagnostic laparoscopy with extensive lysis of adhesions and right salpingo-oophorectomy. FINDINGS: The uterus was severely retroverted, and sounded to 6 cm. There were extensive adhesions of the bowel to the anterior abdominal wall and pelvis including as bilateral adnexa and the uterus. The ileostomy appeared normal. There was about a 10 cm right adnexal mass noted with multiple cysts that were drained; one being an endometrioma, and then the second cyst was drained with serous fluid. The right tube was never visualized. Left ovary was dissected out and appeared normal. Left tube was not visualized. All specimens sent to pathology. SPECIMENS: Right tube and ovary. ESTIMATED BLOOD LOSS: 100 cc. INDICATIONS: This is a 31-year-old nulliparous female, who presents with 2-week ' duration of worsening right lower quadrant abdominal pelvic pain, and on ultrasound was found to have a 10 x 9 cm complex right adnexal mass with septations. No torsion. Patient states the pain is not being relieved with hydrocodone and wants to proceed with surgery at this time. Surgical consents were obtained. Risks, benefits, alternatives were reviewed with the patient. She understands all risks of surgery and wants to proceed with surgery at this time. DESCRIPTION OF PROCEDURE: Patient was taken to the operating room where adequate general anesthesia was obtained. The patient was prepped and draped in normal sterile fashion and placed in dorsal lithotomy position. A Corcoran catheter was placed at this time. A speculum was placed in the vagina. Anterior lip of the cervix was grasped with a single-tooth tenaculum. The uterus was gently sounded to 6 cm, and found to be retroverted. A small acorn was placed in the uterus to provide a means to manipulate the uterus. We then turned our attention to the upper abdomen, and at this point, Dr. Chris Angelo, took over the case and will be dictating his portion of the case. After extensive lysing of adhesions down to the right adnexal mass by Dr. Angelo, we were able to visualize this mass. The ureter was dissected out, as well as the round ligament. The mass was drained, noted to be at least 2 cysts, making the mass much smaller and more manageable. The cyst wall and ovary was then both sharply and bluntly dissected away from the pelvic sidewall paying careful attention to the ureter. Using the LigaSure, the infundibulopelvic ligament was then cauterized multiple times and then transected. Using the 10 mm subxiphoid incision, an EndoCatch bag was placed down through this port and the right adnexal mass was placed in this and removed intact without difficulty. We then dissected out the left ovary from the adhesions and it appeared grossly normal appearing. At this time, the pelvis was irrigated with copious amounts of normal saline. There was some oozing noted from dissection areas in right adnexa, so Juli was placed and hemostasis was achieved. All pedicles appeared hemostatic. All instruments were then removed from the abdomen. Air was allowed to escape from the abdomen. The 10 mm subxiphoid incision was closed with 3-0 Vicryl and then covered with Steri-Strips and a Band-Aid. The other three 5 mm ports were closed with Dermabond. We then turned our attention down below. We removed all the instruments from the vagina. There was noted to be some bleeding from the tenaculum site, so silver nitrate x3 was used. Hemostasis was achieved. Corcoran catheter was removed as well. Sponge, instruments and needle counts were correct x 2. Patient tolerated procedure well. No complications. Patient was taken out of dorsal lithotomy position, awakened, and taken to the PACU in stable condition. URINE OUTPUT: 150 cc of clear cloudy urine at the end the procedure. IV FLUIDS: 1850 cc of LR. /[id number]/MODL MTDD
--- NOTE | 2017-03-10 08:54 | SOAPPROG ---
SOAP Progress Note Assessment/Plan: Assessment: 31 y/p G0 POD #1 s/p Dx laparoscopy, extensive lysis of adhesions and RSO secondary to endometrioma Plan: D/c home today with PO Dilaudid. Patient has PO Ibuprofen. Follow-up @ [facility] with Dr Malagon 2 weeks. 03/10/17 08:53 Subjective: Pt is doing better this am. She has an appetite and is tolerating po pain meds. She is ambulating and voiding without difficulty and is ready to d.c home. Objective: Vital Signs Temp Pulse Resp BP Pulse Ox 36.7 C 71 14 90/58 L 95 03/10/17 04:00 03/10/17 04:00 03/10/17 04:00 03/10/17 04:00 03/10/17 04:00 03/09/17 03/10/17 03/11/17 05:59 05:59 05:59 Intake Total 1900 Output Total 1500 400 Balance 400 -400 - Pending Discharge Pending Discharge Within 24 Hours: Yes Pending Discharge Date: 03/11/17 Pending Discharge Time: 11:00 Physical Exam - Physical Exam General Appearance: WD/WN, alert, no apparent distress Neck: non-tender, full range of motion, supple Respiratory: chest non-tender, lungs clear, normal breath sounds Cardiac/Chest: regular rate, rhythm Abdomen: other (incisions c/d/i) Extremities: swelling (no), Mary's sign (neg) ICD10 Worksheet Patient Problems: Problems Problem Status Onset Adnexal mass Acute Right sided abdominal pain Acute Crohns disease Acute Ovarian cyst Acute Perineal abscess Acute RLQ abdominal pain Acute Right flank pain Acute
[2017-03-10 09:38] VITALS: BP 95/58; PULSE 103; RESP 16
[2017-03-10] MEDS ORDERED: PATCH REMOVAL 1 EA PATCH TD ONE (09:49)
== END 2017-03-10 12:00 | disposition home or self-care (01) ==
LOC: FSGY 06:24 → F3E 17:35 → F1N 19:50
PROVIDERS: ADMIT Obstetrics & Gynecology; ATTEND Obstetrics & Gynecology
PROC: 0UBF4ZZ Excision of Cul-de-sac, Percutaneous Endoscopic Approach (ICD-10-PCS; principal; 2017-03-09 08:00)
PROC: 0DBQXZZ Excision of Anus, External Approach (ICD-10-PCS; principal; 2017-03-09 08:00)
PROC: 0UT04ZZ Resection of Right Ovary, Percutaneous Endoscopic Approach (ICD-10-PCS; principal; 2017-03-09 08:00)
PROC: 0UB54ZX Excision of Right Fallopian Tube, Percutaneous Endoscopic Approach, Diagnostic (ICD-10-PCS; principal; 2017-03-09 08:00)
DX: N80.1 Endometriosis of ovary (principal); R10.31 Right lower quadrant pain; K66.0 Peritoneal adhesions (postprocedural) (postinfection); N83.01 Follicular cyst of right ovary; K61.0 Anal abscess; K50.90 Crohn's disease, unspecified, without complications; Z90.49 Acquired absence of other specified parts of digestive tract; Z93.2 Ileostomy status
CPT/HCPCS: 46922; 58661; 58662; G0378; J0690; J1170; J1885; J2250; J2405; J2704; J3010; Q9968

== ENCOUNTER → 2017-07-14 | Outpatient (CLI) | payer MEDICAID | LOC: FIMAGING 10:53 | PROVIDERS: ATTEND Obstetrics & Gynecology | DX: N83.202 Unspecified ovarian cyst, left side (principal); Z90.721 Acquired absence of ovaries, unilateral ==

== ENCOUNTER → 2017-07-26 | Outpatient (CLI) | payer MEDICAID | LOC: FIMAGING 13:20 | PROVIDERS: ATTEND Obstetrics & Gynecology | DX: R10.2 Pelvic and perineal pain (principal) ==

== ENCOUNTER → 2018-04-04 | Outpatient (CLI) | payer MEDICAID | LOC: BMCIMAGING 12:42 | PROVIDERS: ATTEND Internal Medicine Gastroenterology | DX: N83.202 Unspecified ovarian cyst, left side (principal); Z90.721 Acquired absence of ovaries, unilateral; R93.5 Abnormal findings on diagnostic imaging of other abdominal regions, including retroperitoneum ==

== ENCOUNTER → 2018-10-05 | Outpatient (CLI) | payer MEDICAID | LOC: BMCIMAGING 14:41 | PROVIDERS: ATTEND Obstetrics & Gynecology Gynecology | DX: N83.292 Other ovarian cyst, left side (principal); Z90.721 Acquired absence of ovaries, unilateral ==